=== PATIENT | female | born 2000 | race Caucasian/White ===

== ENCOUNTER 2022-12-26 16:39 | Emergency (ER) | payer OTHER ==
[~2022-12-26] VITALS: Ht 152.4 cm; Wt 54.4 kg
[2022-12-26 16:50] VITALS: BP 97/55
--- NOTE | 2022-12-26 22:25 | NUR ---
Dr. Moreno examining patient.
[2022-12-26] MEDS ORDERED: KETOROLAC 30 MG/ML VIAL IM ONE (22:30)
[2022-12-26] MEDS ORDERED: KETOROLAC 30 MG/ML VIAL ONE (22:34)
--- NOTE | 2022-12-26 22:41 | NUR ---
Patient taken to X-ray via WC.
[2022-12-26] MEDS ORDERED: NAPR-54 PO (23:10)
[2022-12-26] MEDS ORDERED: CYCL-711 PO (23:10)
--- NOTE | 2022-12-26 23:16 | NUR ---
Patient discharged with v/s stable. Written and verbal after care instructions given and explained. Patient verbalized understanding. Ambulatory with steady gait. All questions addressed prior to discharge. Advised to follow up with PMD.
== END 2022-12-26 23:16 | disposition home or self-care (01) ==
LOC: MED 16:39
DX: R07.89 Other chest pain (principal); J45.909 Unspecified asthma, uncomplicated; Z79.1 Long term (current) use of non-steroidal anti-inflammatories (NSAID); Z79.899 Other long term (current) drug therapy; V49.9XXA Car occupant (driver) (passenger) injured in unspecified traffic accident, initial encounter; Y93.89 Activity, other specified; Y92.410 Unspecified street and highway as the place of occurrence of the external cause; Y99.8 Other external cause status
CPT/HCPCS: 71046; 81025; 96372; 99283; J1885